=== PATIENT | male | born 1975 | race African-American/Black ===

== ENCOUNTER 2022-08-11 05:56 | Emergency (ER) | payer OTHER, SELFPAY ==
[2022-08-11] VITALS (8 sets, daily range): BP systolic 119–151; BP diastolic 81–109; PULSE 80–102; RESP 12–20; TEMP 37; O2SAT 97–100
--- NOTE | 2022-08-11 06:08 | PC.NURSE ---
patient accusing this RN of being racist and not giving a damn when asked what brought him to the emergency during triage. patient verbally hostile and threatening. refused to stay in wheelchair when requested to do so due to unsteady gait.
--- NOTE | 2022-08-11 07:04 | ECG_ITS ---
Measurements Intervals [place] Rate: 90 P: 67 PA: 174 QRS: 58 QRSD: 93 T: -6 QT: 342 QTc: 420 Interpretive Statements SINUS RHYTHM LEFT VENTRICULAR HYPERTROPHY AND ST-T CHANGE [VOLTAGE CRITERIA PLUS ST/T ABNORMALITY] NO PREVIOUS ECG AVAILABLE FOR COMPARISON Electronically Signed On 08-11-2022 10:46:23 CDT by Dalila Moore M.D.
[2022-08-11 07:37] LABS: Basophils Percent Auto 0.5 % (0.2-1.2); Eosinophils Absolute Auto 0.1 K/mm3 (0-0.3); Eosinophils Percent Auto 0.9 % (0-4.4); Hematocrit 40.8 % (42.0-52.0); Hemoglobin 14.2 g/dL (14.0-18.0); Immature Granulocyte Absolute 0.03 K/mm3 (0.00-0.031); Immature Granulocyte Percent A 0.4 % (0-0.5); Lymphocytes Percent Auto 25.1 % (18.3-44.2); Mean Corpuscular HGB Conc 34.8 g/dl (32-36); Mean Corpuscular Hemoglobin 32.1 pg (26-34); Mean Corpuscular Volume 92.1 fl (80-100); Mean Platelet Volume 8.7 fl (7.4-10.4); Monocytes Absolute Auto 0.5 K/mm3 (0.1-0.6); Monocytes Percent Auto 6.2 % (2.6-8.5); Neutrophils Absolute Auto 5.1 K/mm3 (1.3-6.7); Neutrophils Percent Auto 66.9 % (45.5-73.1); Platelet Count Result 243 k/mm3 (150-375); Red Blood Count 4.43 M/mm3 (4.6-6.20); Red Cell Distribution Width 13.3 % (11.5-14.5); White Blood Count 7.6 K/mm3 (4.5-10.0)
[2022-08-11 07:51] LABS: Alanine Aminotransferase 106 U/L (6-50); Albumin Level 4.6 g/dL (3.5-5.1); Alkaline Phosphatase 65 U/L (38-126); Anion Gap 9 mmol/L (8-16); Aspartate Amino Transferase 76 U/L (17-59); Bilirubin,Total 0.5 mg/dL (0.2-1.3); Blood Urea Nitrogen 7 mg/dL (9-20); Calcium 8.9 mg/dL (8.4-10.2); Carbon Dioxide 31 mmol/L (22-30); Chloride 103 mmol/L (98-107); Estimated CRCL calculation 119 ml/min; Estimated Glomerular Filt Rate > 60; Glucose 107 mg/dL (65-110); Potassium 3.6 mmol/L (3.4-5.0); Sodium 143 mmol/L (137-145)
[2022-08-11 08:02] LABS: Appearance Urine Clear (Clear); Bacteria Urine None Seen /hpf; Bilirubin Urine Negative (Negative); Blood Urine Negative (Negative); Color Urine Yellow (Yellow); Glucose Urine UA Negative (Negative); Ketones Urine Negative (Negative); Leukocyte Esterase Ur Trace LEU/UL (Negative); Nitrate Urine Negative (Negative); Non Pathogenic Casts 0-2; Protein Urine Negative (Negative); RBC Urine 0-2 /hpf (0-2); Specific Grav Ur 1.005 (1.001-1.035); Squamous Epithelial Cell Urine None seen /hpf (Few); Urobilinogen Urine 0.2 mg/dL (<2.0); WBC Urine 0-5 /hpf
[2022-08-11 08:10] LABS: Add Urine Microscopic? YES
[2022-08-11 09:48] LABS: Ethanol 220 mg/dL (<10)
--- NOTE | 2022-08-11 11:23 | PC.NURSE ---
Patient stated his ride will be here in 10 minutes and is requesting to leave. ERP aware.
--- NOTE | 2022-08-11 11:36 | PC.NURSE ---
Pt. ambulated out with a steady gait of the ED. IV removed. ERP spoke with patient in the waiting room prior to leaving. Patient ride is present. Patient has eloped.
--- NOTE | 2022-08-11 11:42 | ED.GENADULT ---
HPI - General Adult General Chief complaint: Alcohol Stated complaint: etoh Time Seen by Provider: 08/11/22 06:55 History of Present Illness HPI narrative: 47-year-old male presenting for evaluation of alcohol intoxication. Patient was supposed to be admitted to [facility] but he drank last night and presented to the emergency department for evaluation. Patient initially was agitated upon arrival to the ED but then was much more reasonable. Patient denied any homicidal or suicidal ideation. Related Data Allergies Allergy/AdvReac Type Severity Reaction Status Date / Time No Known Allergies Allergy Verified 08/11/22 06:02 Review of Systems Review of Systems: All systems reviewed & are unremarkable except as noted in HPI and below Exam Narrative: APPEARANCE: Well appearing, no pain, no distress, well-nourished. HEAD: normocephalic, atraumatic. EYES: PERRLA/EOMI, conjunctivae clear. NOSE: Normal no drainage NECK: Supple. No adenopathy, no masses. RESPIRATORY: Airway patent, respirations nonlabored. Clear to auscultation bilaterally, no rales, rhonchi, wheezing. CARDIOVASCULAR: Regular rate and rhythm without murmurs rubs or gallops. ABDOMINAL: Soft, nontender, nondistended, normal bowel sounds MUSCULOSKELETAL: Moves all extremities. Strength/ROM intact, No edema, No calf tenderness. NEURO: Alert. Cranial nerves II through XII intact. Grossly intact SKIN: Warm, dry. Normal Color Course Course Emergency Course: 38-year-old male presenting to the emergency department for evaluation of alcohol detox. Prior to completing his medical work-up patient decided he wanted to leave the emergency department. Patient left the ED reporting he has a ride. Patient was alert and appropriate at time of leaving the ED. patient states that he will continue to seek placement at [facility]. Patient continues to deny any homicidal suicidal ideation. Patient is clinically alert and appropriate at time of discharge. Vital Signs Vital signs: Vital Signs Temperature 98.6 F 08/11/22 06:03 Pulse Rate 102 H 08/11/22 06:03 Respiratory Rate 20 08/11/22 06:03 Blood Pressure 130/99 H 08/11/22 06:03 Pulse Oximetry 98 08/11/22 06:03 Oxygen Delivery Room Air 08/11/22 06:03 Temperature 98.6 F 08/11/22 06:03 Pulse Rate 93 08/11/22 10:53 Respiratory Rate 14 08/11/22 10:53 Blood Pressure 119/81 08/11/22 10:53 Pulse Oximetry 100 08/11/22 10:53 Oxygen Delivery Room Air 08/11/22 06:03 Medical Decision Making Vital Signs Vital Signs: Vital Signs Temperature 98.6 F 08/11/22 06:03 Pulse Rate 102 H 08/11/22 06:03 Respiratory Rate 20 08/11/22 06:03 Blood Pressure 130/99 H 08/11/22 06:03 Pulse Oximetry 98 08/11/22 06:03 Oxygen Delivery Room Air 08/11/22 06:03 Temperature 98.6 F 08/11/22 06:03 Pulse Rate 93 08/11/22 10:53 Respiratory Rate 14 08/11/22 10:53 Blood Pressure 119/81 08/11/22 10:53 Pulse Oximetry 100 08/11/22 10:53 Oxygen Delivery Room Air 08/11/22 06:03 Lab Data Lab results reviewed: Yes I reviewed the patient's lab results. 08/11/22 07:28 08/11/22 07:28 Labs: Lab Results 08/11/22 08/11/22 08/11/22 Range/Units 07:27 07:27 07:28 WBC 7.6 (4.5-10.0) K/mm3 RBC 4.43 L (4.6-6.20) M/mm3 Hgb 14.2 (14.0-18.0) g/dL Hct 40.8 L (42.0-52.0) % MCV 92.1 (80-100) fl MCH 32.1 (26-34) pg MCHC 34.8 (32-36) g/dl RDW 13.3 (11.5-14.5) % Plt Count 243 (150-375) k/mm3 MPV 8.7 (7.4-10.4) fl Immature Gran % (Auto) 0.4 (0-0.5) % Neut % (Auto) 66.9 (45.5-73.1) % Lymph % (Auto) 25.1 (18.3-44.2) % Mcdowell % (Auto) 6.2 (2.6-8.5) % Eos % (Auto) 0.9 (0-4.4) % Baso % (Auto) 0.5 (0.2-1.2) % Lymph # (Auto) 1.90 (0.9-3.2) K/mm3 Mcdowell # (Auto) 0.5 (0.1-0.6) K/mm3 Eos # (Auto) 0.1 (0-0.3) K/mm3 Baso # (Auto) 0.0 (0.0-0.1) K/mm3 Abs Immat Gran (auto) 0.03 (0.0
== END 2022-08-11 11:57 | disposition home or self-care (01) ==
LOC: ANHED 06:57
PROVIDERS: Emergency Provider Emergency Medicine
DX: F10.129 Alcohol abuse with intoxication, unspecified (principal); Y90.7 Blood alcohol level of 200-239 mg/100 ml; I51.7 Cardiomegaly
CPT/HCPCS: 36415; 80053; 80307; 81001; 85025; 93005; 99283